=== PATIENT | male | born 1995 | race Caucasian/White ===

== ENCOUNTER 2017-05-03 09:04 | Emergency (ER) | payer OTHER ==
[~2017-05-03] VITALS: Ht 180.3 cm; Wt 100.0 kg
[2017-05-03 09:06] VITALS: BP 148/99; PULSE 64; RESP 14; TEMP 97.2; O2SAT 100
--- NOTE | 2017-05-03 09:54 | PD ---
HPI Chief Complaint: Musculoskeletal Complaint Time Seen by Provider: 09:34 Travel History International Travel<30 days: No Contact w/Intl Traveler<30days: No Traveled to known affect area: No History of Present Illness HPI 21-year-old male from [facility] here going to college at [employer], presents to the emergency Department with sudden onset left-sided neck pain and spasm. He states he woke up with it this morning. He denies numbness , tingling, or radicular symptoms. No headache, sore throat, nausea, vomiting or fever. The patient states he worked out about 3 days ago, and had mild neck stiffness the last couple of days but this is much worse this morning. Pain is currently 8 out of 10 and worse with any type of movement. Patient has no known drug allergies. [facility] Social History Alcohol Use: Yes Tobacco Use: No Substance Use: No Allergies-Medications (Allergen,Severity, Reaction): Coded Allergies: No Known Allergies (Unverified , 05/03/17) Reported Meds & Prescriptions Reported Meds & Active Scripts Active No Active Prescriptions or Reported Medications Review of Systems Except as stated in HPI: all other systems reviewed are Neg General / Constitutional: No: Fever, Chills Eyes: No: Visual changes HENT: Positive: Neck Stiffness, Neck Pain, No: Headaches, Sore Throat, Rhinitis , Rhinorrhea, Congestion, Nosebleed, Dental Difficulties (the history present on ), Earache Cardiovascular: No: Chest Pain or Discomfort Respiratory: No: Shortness of Breath Gastrointestinal: No: Abdominal Pain Genitourinary: No: Dysuria Musculoskeletal: Positive: Myalgias (see history of present illness), Limited ROM, Pain Skin: No Rash Neurologic: No: Weakness Psychiatric: No: Depression Endocrine: No: Polydipsia Hematologic/Lymphatic: No: Easy Bruising Physical Exam Narrative GENERAL: Patient appears in moderate distress, moving his upper body as a fixed unit. SKIN: Warm and dry. Normal color. Normal turgor. No rash. HEAD: Atraumatic. Normocephalic. EYES: Pupils equal and round. No scleral icterus. No injection or drainage. ENT: No nasal bleeding or discharge. Mucous membranes pink and moist. TMs are clear bilaterally. No sinus tenderness. Posterior pharynx is unremarkable. NECK: Trachea midline. Patient has no bony tenderness but does have soft tissue tenderness and spasm along the left paraspinous muscles and scalenes. Range of motion is limited secondary to pain. He has no radicular symptoms. CARDIOVASCULAR: Regular rate and rhythm. RESPIRATORY: No accessory muscle use. Clear to auscultation. Breath sounds equal bilaterally. MUSCULOSKELETAL: Extremities without clubbing, cyanosis, or edema. No obvious deformities. NEUROLOGICAL: Awake and alert. No obvious cranial nerve deficits. Motor grossly within normal limits. Five out of 5 muscle strength in the arms and legs. Normal speech. PSYCHIATRIC: Appropriate mood and affect; insight and judgment normal. Data Data Last Documented VS Vital Signs Date Time Temp Pulse Resp B/P (MAP) Pulse Ox O2 Delivery O2 Flow Rate FiO2 05/03/17 09:06 97.2 64 14 148/99 (115) 100 MDM Medical Decision Making Medical Screen Exam Complete: Yes Emergency Medical Condition: Yes Differential Diagnosis Muscle spasm. Spasmodic torticollis. Neck pain. Narrative Course Patient is felt to be medically stable at time of exam. Patient is treated with Toradol 60 mg IM. Patient continued on ibuprofen 800 mg 3 times daily with food #30. Patient also take Tylenol 500 mg 2 tabs every 6-8 hours when necessary #60. Patient also given Flexeril 10 mg up to 3 times a day when necessary muscle spasm #15. Patient is to use heat, ice, and gentle stretching as discussed. Patient follow up if symptoms do not improve or worsen as needed. Diagnosis Primary Impression: Spasmodic torticollis Referrals: [facility] PO Patient Instructions: Cervical Neck Strain Exercises (GEN), General Instructions, Spasmodic Torticollis (ED) Additional Instructions: Patient is felt to be medically stable at time of exam. Patient is treated with Toradol 60 mg IM. Patient continued on ibuprofen 800 mg 3 times daily with food #30. Patient also take Tylenol 500 mg 2 tabs every 6-8 hours when necessary #60. Patient also given Flexeril 10 mg up to 3 times a day when necessary muscle spasm #15. Patient is to use heat, ice, and gentle stretching as discussed. Patient follow up if symptoms do not improve or worsen as needed. Med/Other Pt SpecificInfo: Prescription(s) given Scripts No Active Prescriptions or Reported Meds Disposition: 01 DISCHARGE HOME Condition: Stable Reza Greene May 03, 2017 09:54
[2017-05-03] MEDS ORDERED: KETOROLAC TROMETHAMINE 60 MG/2 ML (IM) VIAL IM ONE (10:00)
[2017-05-03] MEDS ORDERED: MAPA500T13 PO (10:05)
[2017-05-03] MEDS ORDERED: IBUP1TAB7 PO (10:05)
[2017-05-03] MEDS ORDERED: CYCL10TA PO (10:05)
== END 2017-05-03 10:49 | disposition home or self-care (01) ==
LOC: NEPK 09:04
DX: G24.3 Spasmodic torticollis (principal); Y93.B9 Activity, other involving muscle strengthening exercises
CPT/HCPCS: 99284; J1885